=== PATIENT | male | born 1965 ===

== ENCOUNTER 2020-10-22 12:16 | Emergency (ER) | payer OTHER ==
[~2020-10-22] VITALS: Ht 172.7 cm; Wt 79.4 kg
[2020-10-22] MEDS ORDERED: TUSNEL LIQUID178 ML PO (15:26)
[2020-10-22] MEDS ORDERED: ZITHROMAX500 MG PO (15:26)
[2020-10-22] MEDS ORDERED: DOLOGEN CAPLET1 EACH PO (15:26)
[2020-10-22] MEDS ORDERED: ZOFRAN8 MG PO (15:26)
[2020-10-22] MEDS ORDERED: PEPCID AC20 MG PO (15:26)
[2020-10-22] MEDS ORDERED: MEDROLPACK PO (15:26)
== END 2020-10-22 16:07 | disposition home or self-care (01) ==
LOC: ER 12:16
DX: U07.1 COVID-19 (principal); R53.83 Other fatigue

== ENCOUNTER 2021-10-18 14:31 | Outpatient (CLI) | payer OTHER ==
[~2021-10-18 14:31] MED LIST: DOLOGEN CAPLET1 EACH PO; MEDROLPACK PO; PEPCID AC20 MG PO; TUSNEL LIQUID178 ML PO; ZITHROMAX500 MG PO; ZOFRAN8 MG PO
== END 2021-10-18 15:12 | disposition home or self-care (01) ==
LOC: RAD 14:31
PROVIDERS: ATTEND Surgery
DX: R22.1 Localized swelling, mass and lump, neck (principal); K43.9 Ventral hernia without obstruction or gangrene; K42.9 Umbilical hernia without obstruction or gangrene; D18.01 Hemangioma of skin and subcutaneous tissue
CPT/HCPCS: 70540

== ENCOUNTER 2024-07-19 11:37 | Outpatient (CLI) | payer OTHER | END 2024-07-19 11:49 | disposition home or self-care (01) | LOC: MRI 11:37 | DX: D18.09 Hemangioma of other sites (principal) | CPT/HCPCS: 70543 ==